=== PATIENT | male | born 2000 | race Caucasian/White ===

== ENCOUNTER 2022-01-12 17:48 | Inpatient (IN) | payer OTHER, SELFPAY ==
[2022-01-12] VITALS (10 sets, daily range): BP systolic 111–187; BP diastolic 47–81; PULSE 106–146; RESP 16–24; TEMP 36.7–37.7; O2SAT 95–100; BMI 29.1
--- NOTE | ~2022-01-12 | CT_ITS ---
EXAMINATION: CT brain wo con DATE: 01/12/2022 19:10 INDICATION: New onset of seizure. Head injury. TECHNIQUE: Computed tomography (CT) of the head was performed without intravenous contrast. The mA wa s adjusted according to patient size. Iterative reconstruction technique was employed. Exam dose: 60 5.33 mGy-cm total exam DLP. COMPARISON: None FINDINGS: No intracranial mass lesion or hemorrhage or cerebrovascular accident. No midline shift or mass effect. Normal ventricular size. Normal chow-white matter differentiation. No subdural or epidur al hematoma. The orbital contents are unremarkable. No fracture or bone destruction of the cranial vault. Included paranasal sinuses and mastoid air cell s are normally developed and aerated. IMPRESSION: Normal examination Reviewed, dictated and finalized at [facility]. Reviewed, dictated and finalized at location A. IMPRESSION: Normal examination
--- NOTE | ~2022-01-12 | CT_ITS ---
EXAMINATION: CT cervical spine wo con DATE: 01/12/2022 19:10 INDICATION: Head injury. Stat seizure. TECHNIQUE: Computed tomography (CT) of the cervical spine was performed without intravenous contrast. Automated exposure control and iterative reconstruction technique were employed. Exam dose: 458.53 mGy-cm total exam DLP. COMPARISON: None FINDINGS: Normal alignment of the cervical spine. C1 and C2 are normally aligned and the odontoid pro cess is intact. No fracture or dislocation or locked facet or prevertebral soft tissue swelling. Cerv ical interspaces are preserved.. IMPRESSION: Normal examination Reviewed, dictated and finalized at [facility]. Reviewed, dictated and finalized at location A. IMPRESSION: Normal examination
--- NOTE | ~2022-01-12 | XR_ITS ---
XR chest 1V DATE: 01/12/2022 20:24 INDICATION: Fever TECHNIQUE: Portable supine AP view on 01/12/2022 at 2017 hours COMPARISON: 07/09/2007 2 view chest FINDINGS: Heart size and pulmonary vascularity appear prominent. Heart size is not optimally evaluate d on AP projection because of medication. PA and lateral views are recommended. There are bilateral perihilar and lower lung zone infiltrates, most prominent in the left lower lobe. Differential diagnosis includes pneumonia, atelectasis, pulmonary edema. No pleural effusion or pneumothorax is detected. IMPRESSION: Limited portable study raising concern for possible cardiomegaly and pulmonary vascular c ongestion; however, heart size is not optimally evaluated AP projection Bilateral perihilar and lower lung infiltrates, most prominent in the left lower lobe; diffusion diag nosis includes pneumonia, atelectasis and/or pulmonary edema Reviewed, dictated and finalized at location A. IMPRESSION: Limited portable study raising concern for possible cardiomegaly an d pulmonary vascular congestion; however, heart size is not optimally evaluated AP projection Bilateral perihilar and lower lung infiltrates, most prominent in the left lowe r lobe; diffusion diagnosis includes pneumonia, atelectasis and/or pulmonary ed liane
--- NOTE | ~2022-01-12 | MR_ITS ---
EXAMINATION: MR brain/brain stem wo/w con DATE: 01/13/2022 12:09 CDT INDICATION: New onset of seizure. TECHNIQUE: Magnetic resonance imaging (MRI) of the brain and brainstem was performed without and with 17 cc MultiHance intravenous contrast. Sequences included sagittal and axial T1-weighted SE, axial d iffusion-weighted FS SE, axial T2*-weighted GRE, axial T2-weighted FLAIR Propeller, and axial T2-weig hted Propeller. Apparent diffusion coefficient (ADC) maps were created. COMPARISON: CT dated 01/12/2022 FINDINGS: Study limited by motion artifact. The brain volume and ventricular system are within normal limits. The brain parenchymal signal intensity pattern and chow/white matter is normal and there is no evidence of hemorrhage, space occupying masses or infarctions. The flow signal voids of the major arterial structures about the [place] and within the anthony r dural venous sinuses appear grossly unremarkable and patent. The seventh and eighth cranial nerve complexes are normal. The mid sagittal image demonstrates a normal craniovertebral junction and joanna us callosum. The paranasal sinuses are grossly unremarkable. No abnormal contrast enhancement was appreciated. IMPRESSION: 1: Unremarkable MRI of the brain. Reviewed, dictated and finalized at location A.
--- NOTE | 2022-01-12 17:52 | ECG_ITS ---
Measurements Intervals [place] Rate: 135 P: 51 SD: 152 QRS: 25 QRSD: 84 T: 15 QT: 259 QTc: 389 Interpretive Statements SINUS TACHYCARDIA OTHERWISE NORMAL ECG NO PREVIOUS ECG AVAILABLE FOR COMPARISON Electronically Signed On 01-13-2022 13:43:25 CDT by Rod Lucero M.D.
--- NOTE | 2022-01-12 17:56 | ED.SEIZURE ---
HPI - Seizure General Chief Complaint: Seizure <Rod Linder PIGMENT GRINDER - Last Filed: 01/13/22 18:13> Stated Complaint: New Onset Seizure <Rod Linder APRN - Last Filed: 01/13/22 18:13> History of Present Illness HPI Narrative: 21-year-old male presents to the emergency room via EMS for evaluation of new onset of seizure. According to EMS, patient was picked up at his place of business. 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 EMS states the patient was postictal for approximately 10 minutes onto your presentation to the ER, patient is alert and oriented x4. Patient states he has a history of asthma, takes Adderall for ADHD, and is taking testosterone and 2 supplemental steroids that he purchases from online. Patient denies any other drug use, no recent infections, no recent head injury or trauma. Patient states that he has not had any changes to his workout routine, or to the dosing of his hormone/steroid replacement therapy. Patient denies chest pain, shortness of breath. Patient denies <Rod Linder PIGMENT GRINDER - Last Filed: 01/13/22 18:13> Related Data Home Medications: Home Medications Medication Instructions Recorded Confirmed bupropion HCl 300 mg 24 hr tablet, 1 tablet PO DAILY 01/12/22 01/12/22 extended release dextroamphetamine-amphetamine 10 1 tablet PO DAILY 01/12/22 01/12/22 mg tablet dextroamphetamine-amphetamine ER 1 cap PO DAILY 01/12/22 01/12/22 20 mg 24hr capsule,extend release quetiapine 25 mg tablet 25 tablet PO DAILY 01/13/22 01/13/22 sertraline 50 mg tablet 50 tablet PO DAILY 01/13/22 01/13/22 <Rod Linder, PIGMENT GRINDER - Last Filed: 01/13/22 18:13> Allergies/Adverse Reactions: Allergies Allergy/AdvReac Type Severity Reaction Status Date / Time No Known Allergies Allergy Verified 01/12/22 22:30 <Rod Linder APRN - Last Filed: 01/13/22 18:13> Review of Systems Review of Systems: CONSTITUTIONAL: Denies fever, chills, or sweats. EYES: Denies visual changes, redness, or discharge. ENT: Denies rhinorrhea, congestion, sore throat, or otalgia. CARDIOVASCULAR: Denies chest pain, palpitations, or edema. RESPIRATORY: Denies cough or dyspnea. GASTROINTESTINAL: Denies abdominal pain, nausea, vomiting, or diarrhea. GENITOURINARY: Denies dysuria or hematuria. SKIN: Denies rash or itching. MUSCULOSKELETAL: Denies back pain, joint pain, or myalgia. NEUROLOGIC: Denies headache, numbness, dizziness, or weakness. PSYCHIATRIC: Denies anxiety or depression. <Rod Linder APRN - Last Filed: 01/13/22 18:13> PMFSH Past Medical History Medical History: Medical History (Updated 01/13/22 @ 18:13 by Rod Linder APRN) ADHD (attention deficit hyperactivity disorder) Depression Mild intermittent asthma without complication <Rod Linder APRN - Last Filed: 01/13/22 18:13> Surgical History Surgical History: Surgical History (Updated 01/12/22 @ 22:40 by Jessica Stephen DO) No pertinent past surgical history <Rod Linder APRN - Last Filed: 01/13/22 18:13> Family History Family History: Family History Mother Depression Other No history of seizure disorder <Rod Linder APRN - Last Filed: 01/13/22 18:13> Social History Social History: Social History (Updated 01/12/22 @ 22:55 by Jessica Stephen DO) Social History: The patient is currently going to the local [employer] college he started this summer semester. Prior to that he had joined [employer] and went to [employer] but was released mcc through [employer] when he developed bunch splints that were intractable. 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 He uses anabolic steroids since 2019. He also buys medications from [place] that he thinks are steroids. Smoking status: Never smoker Alcohol intake:
[2022-01-12 18:06] LABS: Basophils Percent Auto 0.5 % (0.2-1.2); Eosinophils Absolute Auto 0.1 K/mm3 (0-0.3); Eosinophils Percent Auto 1.5 % (0-4.4); Hematocrit 41.2 % (42.0-52.0); Hemoglobin 13.2 g/dL (14.0-18.0); Immature Granulocyte Percent A 1.1 % (0-0.5); Lymphocytes Percent Auto 11.3 % (18.3-44.2); Mean Corpuscular Hemoglobin 27.6 pg (26-34); Mean Corpuscular Volume 86.2 fl (80-100); Mean Platelet Volume 9.2 fl (7.4-10.4); Monocytes Absolute Auto 0.8 K/mm3 (0.1-0.6); Neutrophils Absolute Auto 6.8 K/mm3 (1.3-6.7); Neutrophils Percent Auto 76.6 % (45.5-73.1); Platelet Count Result 287 k/mm3 (150-375); Red Blood Count 4.78 M/mm3 (4.6-6.20); Red Cell Distribution Width 15.9 % (11.5-14.5); White Blood Count 8.9 K/mm3 (4.5-10.0)
[2022-01-12] MEDS: SODIUM CHLORIDE 0.9% IV 1,000 ML 999 ML IV CONT ×2 (18:15→20:44)
[2022-01-12 18:17] LABS: Alanine Aminotransferase 60 U/L (6-50); Albumin Level 4.4 g/dL (3.5-5.1); Alkaline Phosphatase 81 U/L (38-126); Anion Gap 13 mmol/L (8-16); Aspartate Amino Transferase 95 U/L (17-59); Bilirubin,Total 0.4 mg/dL (0.2-1.3); Blood Urea Nitrogen 13 mg/dL (9-20); Calcium 9.3 mg/dL (8.4-10.2); Carbon Dioxide 23 mmol/L (22-30); Chloride 103 mmol/L (98-107); Estimated CRCL calculation 88 ml/min; Estimated Glomerular Filt Rate > 60; Glucose 89 mg/dL (65-110); Potassium 4.6 mmol/L (3.4-5.0); Sodium 139 mmol/L (137-145)
[2022-01-12 18:19] LABS: Acetaminophen < 10 ug/mL (10-30); Ethanol < 10 mg/dL (<10)
[2022-01-12 18:29] LABS: Troponin I < 0.012 ng/mL (0.000-0.034)
[2022-01-12 18:46] LABS: Glucose Point of Care 87 mg/dl (65-105)
[2022-01-12 18:47] LABS: Magnesium 2.2 mg/dL (1.6-2.3)
--- NOTE | 2022-01-12 19:19 | PC.NURSE ---
1914 pt. mother yelled for help from room. pt. found to be having a SZ ERP Pernell and Dr. Velarde at pt. bedside. 1917 2 mg ativan administered IVP VORB ERP
--- NOTE | 2022-01-12 19:19 | PC.NURSE ---
Pt's visitor ran out of room, yelling for help. This RN entered room with ED MD Velarde and pt appeared to be seizing. Seizure pads in place. HOB lowered and pt on his left side. Verbal order obtained for ativan 2mg ivp given by SHONA Robles. Supplemental O2 given via blow-by. Oral secretions cleared with suction at bedside. Order for IVP Keppra received. Pt's primary RN notified.
[2022-01-12] MEDS: ONDANSETRON INJ 4 MG/2 ML VIAL IV PUSH (19:28)
[2022-01-12] MEDS: levETIRAcetam 1000MG/NACL100ML 1,000 MG/100 ML BAG 400 MG IVPB (19:28)
[2022-01-12] MEDS: LORazepam INJ (*CRX) 2 MG/ML VIAL 1 MG IV PUSH (19:28)
[2022-01-12 19:43] LABS: Appearance Urine Clear (Clear); Bilirubin Urine Negative (Negative); Blood Urine Negative (Negative); Color Urine Yellow (Yellow); Glucose Urine UA Negative (Negative); Ketones Urine Negative (Negative); Leukocyte Esterase Ur Negative LEU/UL (Negative); Nitrate Urine Negative (Negative); Protein Urine 2+ mg/dL (Negative); Specific Grav Ur >= 1.030 (1.001-1.035)
[2022-01-12 19:48] LABS: Hyaline Casts Urine 15-19 /lpf; Mucus Urine Rare /lpf; RBC Urine 0-2 /hpf (0-2); Squamous Epithelial Cell Urine Rare /hpf (Few)
[2022-01-12 19:50] LABS: Add Urine Microscopic? YES
[2022-01-12 20:00] LABS: Barbiturate Screen Urine Negative (Negative); Benzodiazepines Screen Urine Negative (Negative)
[2022-01-12 20:13] LABS: Amphetamine Screen Urine Positive (Negative); Cannabinoid Screen Urine Positive (Negative); Cocaine Screen Urine Negative (Negative); Methadone Screen Urine Negative (Negative); Opiate Screen Urine Negative (Negative); Phencyclidine Screen Urine Negative (Negative)
[2022-01-12 20:33] LABS: Creatine Kinase 912 U/L (55-170)
[2022-01-12 20:53] LABS: Lactic Acid Reflex 1.5 mmol/L (0.7-2.0)
--- NOTE | 2022-01-12 21:20 | PC.NURSE ---
This nurse received telephone consent from pt father with MD Velarde due to difficulty to have patient repeat back sentences and difficulty staying awake.
--- NOTE | 2022-01-12 21:27 | PM.IMHP ---
H&P: HPI History of Present Illness Date/Time: 01/12/22 20:00 Chief Complaint: Seizure Narrative: 21-year-old male with past medical history of asthma, depression, ADHD and antibiotic steroid abuse who presented to the ER from his place of employment after having witnessed seizure. Source of information comes from the patient's wtolhr-rx-tfo/employer who is at bedside. Patient's family member reports that the patient's had his 1st seizure on Saturday while at work and washing dishes. The seizure lasted about 20 seconds and within 1-2 minutes afterwards he was back to his baseline. She reports that he was shook up but was back to normal. Then today he was again at work and seemed to be shaking and restless. He then had a seizure tonic clonic in nature and fell to the ground. Seizure today lasted longer than the previous seizure but probably not longer than 1 minute. He did not have any loss of consciousness. The patient remained postictal for approximately 10 minutes. The patient was alert oriented by the time he got to the ER. However while he was in the ER he then had another seizure witnessed in the ER. Unfortunately the patient had just drink a large glass of water prior to the seizure and it is suspected that he aspirated. He received IV Keppra 1 g and Ativan in the ER. At the time of my evaluation the patient was still postictal he would open his eyes to command but fell asleep quickly and was snoring. He could tell me his name but could not provide any other history. Patient had no evidence of bladder incontinence. He had no injury to his tongue. His family member reports that she has noticed over the last month the patient has developed some twitching and irregular movements including rhythmic movements of his head. She also reports a new onset of stutter and difficulty with slurring of words. The patient does take Adderall for ADHD and uses marijuana. He has also been abusing antibiotic steroids since 2019. He has also been buying a substance from [place] that he believes his steroids in using this as well. The family reports that the patient only drinks soda and lemonade. She rarely sees him actually eat food. She reports that he used to be quite skinny and [place] but when he started using steroids he became muscular almost overnight. She denies any known history of illicit substance use. He rarely drinks alcohol. He does not smoke tobacco. The patient had not been complaining of any headache that they know of. The patient did have a mildly elevated temperature on arrival to the ER and 99.8. On exam in the ER the patient was hyper reflex sick with 4/4 DTR bilateral patellar, he had increased tone of right upper extremity, had clonus of the right foot, and his right foot seemed to have a Babinski. Review of Systems Review of Systems: Patient is postictal from seizure. ROS unobtainable: Yes unobtainable due to mental status PMFSH Past Medical History Medical History (Updated 01/12/22 @ 23:10 by Jessica Stephen DO) ADHD (attention deficit hyperactivity disorder) Depression Mild intermittent asthma without complication Surgical History Surgical History (Updated 01/12/22 @ 22:40 by Jessica Stephen DO) No pertinent past surgical history Family History Family History Mother Depression Other No history of seizure disorder Social History Social History (Updated 01/12/22 @ 22:55 by Jessica Stephen DO) Social History: The patient is currently going to the local [employer] college he started this summer semester. Prior to that he had joined [employer] and went to [employer] but was released senior care through [employer] when he developed bunch splints that were intractable. 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 He uses anabolic steroids since 2019. He also buys medications from [employer] that he thinks are steroids. Smoking
[2022-01-12] MEDS: SODIUM CHLORIDE 0.9% IV 1,000 ML 125 ML IV CONT (21:43)
[2022-01-12] MEDS: AMPICILLIN SULB 3 GM/NS 100 ML 3 GM/100 ML VIAL IVPB (22:23)
--- NOTE | 2022-01-12 23:04 | ADMGEN ---
This patient, Rex De La Cruz, was admitted to 2 Medical Room 242-01 @ 2230 Patient/family oriented to hospital policies and general routines including ID bracelet, bed and alarms, visiting hours, pain management, procedures, bathroom and other care routines, personal items, smoking policy, room service/diet, and visiting hours. Information on how to activate the Rapid Response Team has been discussed. Patient/Family are encouraged to report perceived risks to care and to ask questions if they do not understand what they are told or what they should do.
[2022-01-12 23:30] LABS: CRP 0.8 mg/dL (<1.0)
[2022-01-12] MEDS: cefTRIAXone 2 GM in SODIUM CHLORIDE 0.9% IV 100 ML 200 ML IVPB (23:32)
[2022-01-12] MEDS: ACYCLOVIR SODIUM IVPB 800 MG in DEXTROSE 5% IN WATER 250 ML 266 MG IVPB (23:32)
[2022-01-12] MEDS: metroNIDAZOLE 500 MG/ISO 100ML 500 MG/100 ML BAG 100 MG IVPB (23:57)
[2022-01-13] VITALS (9 sets, daily range): BP systolic 127–131; BP diastolic 53–56; PULSE 101–115; RESP 17–18; TEMP 36.6–36.9; O2SAT 94–98
[2022-01-13 00:09] LABS: HIV 1/2 Ab P24 Ag Result Negative (Negative)
[2022-01-13 00:43] LABS: Influenza A QL RT-PCR Negative (Negative); Influenza B QL RT-PCR Negative (Negative); SARS-CoV-2 RNA PCR Negative
[2022-01-13 00:43] LABS: Hepatitis B Surface Antigen Negative (Negative)
[2022-01-13 00:49] LABS: HAV RESULT Negative (Negative); Hepatitis B Core IgM Result Negative (Negative)
[2022-01-13 01:00] LABS: Hepatitis C Virus Antibody Negative (Negative)
[2022-01-13] MEDS: metroNIDAZOLE 500 MG/ISO 100ML 500 MG/100 ML BAG 100 MG IVPB ×4 (05:30→23:20)
[2022-01-13] MEDS: ACYCLOVIR SODIUM IVPB 800 MG in DEXTROSE 5% IN WATER 250 ML 266 MG IVPB ×3 (05:37→21:11)
[2022-01-13] MEDS: levETIRAcetam 500MG/NACL 100ML 500 MG/100 ML BAG 400 MG IVPB ×2 (08:28→21:11)
[2022-01-13] MEDS: SODIUM CHLORIDE 0.9% IV 1,000 ML 125 ML IV CONT ×2 (08:34→22:12)
[2022-01-13] MEDS: PANTOPRAZOLE SODIUM IV 40 MG VIAL IV PUSH (10:41)
[2022-01-13] MEDS: cefTRIAXone 2 GM in SODIUM CHLORIDE 0.9% IV 100 ML 200 ML IVPB ×2 (10:49→22:10)
[2022-01-13] MEDS: ONDANSETRON INJ 4 MG/2 ML VIAL IV PUSH (10:53)
--- NOTE | 2022-01-13 10:58 | PM.IMPN ---
Progress Note: A&P Assessment and Plan (1) New onset seizure with abnormal neurological exam without head trauma: Code(s): R56.9 - Unspecified convulsions; R29.90 - Unspecified symptoms and signs involving the nervous system Status: Acute (2) Sepsis: Code(s): A41.9 - Sepsis, unspecified organism Status: Acute (3) Aspiration pneumonia: Code(s): J69.0 - Pneumonitis due to inhalation of food and vomit Status: Acute (4) Anabolic steroid abuse: Code(s): F55.3 - Abuse of steroids or hormones Status: Acute Plan Patient has new onset seizure. Cause is uncertain but given family's report of patient having neurologic changes for month prior with increased shaking and twitching and abnormal movements and speech difficulties certainly need to rule out progressive neurologic disorders. However meningitis or encephalitis is also possibility. Unfortunately the ER provider was unable to perform lumbar puncture due to the patient's clonus and rigidity. Patient has been placed on empiric antibiotic and antiviral coverage with acyclovir 10 milligram/kilogram q.8 hours, Rocephin 2 g q.12 hours, vancomycin, and Decadron. Neurology has been consulted and EEG and MRI has been ordered. I have placed an order for IR consult for potential repeat attempt of lumbar puncture in a.m.. CSF studies have been ordered including HS at be PCR, EBV PCR, West Nile PCR, enterovirus PCR, and CMV, CSF glucose, total protein, cell count and Gram stain. Also will check his varicella serum antibodies, with now serum antibodies. The patient fit sepsis criteria with tachycardia, fever, and tachypnea. He received a 30 mL/kilos bolus in the ER and maintenance fluids are continuing to run. Blood cultures have been obtained. CSF studies as discussed above. Chest x-ray was performed after the patient's seizure and subsequent aspiration and chest x-ray suggests findings consistent with pneumonia with perihilar and lower lung infiltrates most prominent left lower lobe. Initially patient did receive 1 dose of Unasyn but given need to streamline antibiotic choices Unasyn was discontinued. The patient was placed on Flagyl for anaerobic coverage and is already receiving high-dose Rocephin due to meningitis order set. Given the use of antibiotics steroids and repeat injections. Patient is at risk for bacteremia. Blood cultures are pending. 05/15/2022 interval history: patient presented with seizures like activities and jerking movement, etiology is unclear of symptoms, apparently patient is buying psychiatric and steroids online and some of the medications are prescribed his primary care provider, Ct scan of head and cervical spine are normal, LP was attempted but was not done, MRI and EEG are pending, patient will be seen by Dr. Granados, neurologist, chest x-ray concerning of cardiomegaly, will do cardiac echo, patient has elevated CK level most likely 2/2 to seizures like activities, will monitor, will hold all his medications, will monitor and plan. Subjective Date/time seen: 01/13/22 10:58 Seizure Narrative: [id number] male with past medical history of asthma, depression, ADHD and antibiotic steroid abuse who presented to the ER from his place of employment after having witnessed seizure.? Source of information comes from the patient's lfwewm-mi-idg/employer who is at bedside.? 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 The seizure lasted about 20 seconds and within 1-2 minutes afterwards he was back to his baseline.? She reports that he was shook up but was back to normal.? Then today he was again at work and seemed to be shaking and restless.? He then had a seizure tonic clonic in nature and fell to the ground.? Seizure today lasted longer than the previous seizure but probably not longer than 1 minute.? He did not have any loss of consciousness.? The patient remained p
--- NOTE | 2022-01-13 12:18 | PC.NURSE ---
Spoke to Radiologist Dr. Bowen regarding spinal tap. I was informed noone will be available until Saturday to do the procedure.
[2022-01-13] MEDS: LORazepam INJ (*CRX) 2 MG/ML VIAL IV PUSH (12:40)
[2022-01-13] MEDS: CALCIUM CARBONATE (TUMS) 500 MG (200 MG ELEMENTAL) PO (23:19)
[2022-01-14] VITALS: PULSE 101
--- NOTE | 2022-01-14 03:21 | PC.NURSE ---
Pt is demanding to leave hospital now. He states, I want to go home this happened because I have not been sleeping and I have been working long hours. He then states, I really think this happened because of no sleep due to his carpel tunnel and working so much. I explained to him plan of care and he said, If it happens again, I will come back He is alert and oriented and answering questions appropriately. He is dressing himself right now and calling [employer] for a ride. He is ambulating in the room with no difficulty. I spent some time at bedside explaining to patient doctors plan of care. He has made the decision he is leaving now. Notified Dr. Stephen and nursing supervisor hardboard, Lilibeth Horan RN Nursing Breana VOGEL is taking him to the front doors per w/c.
--- NOTE | 2022-01-15 05:56 | PM.EVENT ---
Event Note Event Note Event Note: 01/14/2022 at 3:20 a.m. The patient is leaving AMA despite discussion of risks of doing so. The patient is aware his condition can worsen, he could have recurrent seizures or .
[2022-01-15 23:41] LABS: CMV DNA Quant PCR IU/mL Not Detected; Cytomegalovirus DNA Quant PCR Not Detected log IU/mL; Cytomegalovirus DNA Source Serum
[2022-01-18 17:16] LABS: Varicella IgM Antibody <=0.90 (<=0.90)
--- NOTE | 2022-01-26 11:55 | WPDNEURCNPN ---
Assessment and Plan Assessment and plan (1) Seizure disorder: Code(s): G40.909 - Epilepsy, unspecified, not intractable, without status epilepticus Status: Acute Assessment and Plan: continue the Keppra as ordered, no driving, return to the office for the follow Consult date: 01/26/22 HPI: Rex De La Cruz is a 21 year old male Was initially seen during his previous hospitalization on January 14, 2022 for the possibility of the seizures when his initial examination was nonfocal and an EEG was requested but unfortunately sign-out before the evaluation completed. An EEG was obtained which was only minimally abnormal due to the presence of excessive amount of theta activity during wakefulness but there was no evidence of any paroxysmal discharge Review of Systems Review of Systems: All systems reviewed & are unremarkable except as noted in HPI and below PMFSH Past Medical History Medical History Acute pancreatitis ADHD (attention deficit hyperactivity disorder) Depression Mild intermittent asthma without complication Seizure disorder Surgical History Surgical History No pertinent past surgical history Family History Family History Mother Depression Other No history of seizure disorder Social History Social History Social History: The patient is currently going to the local [employer] college he started this summer semester. Prior to that he had joined [employer] and went to [employer] but was released usp through [employer] when he developed bunch splints that were intractable. 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 He uses anabolic steroids since 2019. He also buys medications from [employer] that he thinks are steroids. Smoking status: Never smoker Alcohol intake: never Substance use: current Substance use type: marijuana and amphetamines Other substance usage details: Testerone, Steroids, Trestolone Spiritual care concerns: No Meds Home Medications and Allergies Home Medications Medication Instructions Recorded Confirmed Type dextroamphetamine-amphetamine 10 1 tablet PO DAILY 01/12/22 01/24/22 History mg tablet dextroamphetamine-amphetamine ER 1 cap PO DAILY 01/12/22 01/24/22 History 20 mg 24hr capsule,extend release sertraline 50 mg tablet 50 tablet PO DAILY 01/13/22 01/24/22 History methylprednisolone 4 mg tablets in See Rx Instructions PO .COMPLEX 01/24/22 Rx a dose pack (Medrol ([place])) #21 ea Allergies Allergy/AdvReac Type Severity Reaction Status Date / Time No Known Allergies Allergy Verified 01/24/22 19:59 Exam Narrative: revealed him to be awake alert cooperative, in no obvious acute distress, his speech was not dysphasic not dysarthric nor dysphonic, pupils were round regular reacting to light equally, arriaga of vision were full to stimuli, extraocular movements were full with no nystagmus, facial sensation was intact, face was symmetrical, tongue was in midline, uvula was midline in, there was no fasciculation of the tongue and the motor examination revealed him to have normal strength normal tone symmetrical bilaterally with intact and symmetrical deep tendon reflexes plantar responses were downgoing there was no evidence of sensory or cerebellar deficit Results Labs CBC & Chem 7: 01/12/22 18:01 01/12/22 18:01 Quality VTE Prophylaxis VTE prophylaxis: mechanical ordered (SCD) [facility] Consult Billing Inpatient Consult [id number] Consult Moderate
== END 2022-01-14 03:40 | disposition left against medical advice (07) | DRG 871 ==
LOC: ANHED 18:55 → ANH2MED 01-13 02:34
PROVIDERS: Admitting Provider Internal Medicine; Emergency Provider Nurse Practitioner Family; Visit Provider Internal Medicine
DX: A41.9 Sepsis, unspecified organism (principal); J18.9 Pneumonia, unspecified organism; J69.0 Pneumonitis due to inhalation of food and vomit; Z20.822 Contact with and (suspected) exposure to COVID-19; R56.9 Unspecified convulsions; R29.90 Unspecified symptoms and signs involving the nervous system; F55.3 Abuse of steroids or hormones; F90.9 Attention-deficit hyperactivity disorder, unspecified type; F32.A Depression, unspecified; J45.909 Unspecified asthma, uncomplicated; Z53.8 Procedure and treatment not carried out for other reasons
CPT/HCPCS: 36415; 62270; 62328; 70450; 70553; 71045; 72125; 80053; 80074; 80307; 81001; 82550; 82948; 83605; 83735; 84145; 84443; 84484; 85025; 86140; 86703; 86787; 86788; 87040; 87497; 87502; 93005; 96361; 96365; 96375; 99285; A9270; A9577; C9113; C9803; G0378; G0432; J0133; J0295; J0696; J1100; J1953; J2060; J2405; J3370; J7030; J7060; U0003; U0005

== ENCOUNTER 2022-01-14 12:28 | Observation (INO) | payer OTHER, SELFPAY ==
[2022-01-14] VITALS (13 sets, daily range): BP systolic 121–148; BP diastolic 56–75; PULSE 94–110; RESP 13–24; TEMP 36.3–37; O2SAT 94–100; BMI 26.2
--- NOTE | ~2022-01-14 | XR_ITS ---
EXAMINATION: XR lumbar puncture diagnostic DATE: 01/15/2022 10:21 INDICATION: Seizure TECHNIQUE: The procedure including the risks and benefits was discussed with the patient. Risks discu ssed included spinal headache, cerebrospinal fluid leak, bleeding, and infection. The patient underst ood the risks and agreed to proceed. A timeout was performed to verify the patient's name, date of , and procedure to be performed. The skin overlying the L4-L5 level was prepped and draped in usual sterile fashion. Subcutaneous 1% lidocaine was used for local anesthesia. A 22 gauge spinal n eedle was advanced under fluoroscopic guidance. The needle was removed and the entry site was cleaned and dressed. There were no immediate complications. A total of 1 fluoroscopic image(s) were obtaine d. The amount of fluoroscopy time used during this procedure was 0.1 minutes. The patient was taken t o the nursing area for observation. FINDINGS: Real-time fluoroscopy demonstrates the needle at the L4-5 level. Opening pressure was 18 cm water. (Normal range is variably defined as 6-20 cm water and up to 25 cm water in obese patients. P ressure >25 cm water is one of the modified Dandy criteria for idiopathic intracranial hypertension). 12 mL of clear, colorless fluid was collected in 4 tubes. IMPRESSION: 1. Successful fluoro-guided lumbar puncture. Reviewed, dictated and finalized at location A.
--- NOTE | ~2022-01-14 | CT_ITS ---
EXAMINATION: CT abdomen pelvis wo con DATE: 01/14/2022 14:35 INDICATION: abd pain TECHNIQUE: Computed tomography (CT) of the abdomen and pelvis was performed without intravenous contr ast. Automated exposure control and iterative reconstruction technique were employed. The dose-length product was 368.14 mGy-cm. COMPARISON: None FINDINGS: Lower thorax: Unremarkable Liver: Normal. Biliary/Gallbladder: Gallbladder is normal. No bile duct dilation. Pancreas: Pancreas appears enlarged, possibly with surrounding inflammatory change Spleen: Normal. Adrenals:No mass. Kidneys: No mass, stone, or hydronephrosis. GI tract: No small or large bowel dilation. Normal appendix. Mesentery/Peritoneum: Small volume fluid in Morison's pouch extending along the right lateral conal f ascia. Retroperitoneum: No mass. Pelvis: Pelvic organs are within normal limits. Soft Tissues: Soft tissues and body wall unremarkable. Bones: No acute osseous finding. IMPRESSION: Mild pancreatic enlargement with possible mild surrounding inflammation and small volume peritoneal f luid, may reflect pancreatitis in the appropriate clinical context. Otherwise no acute abdominopelvic process. Reviewed, dictated and finalized at location K. IMPRESSION: Mild pancreatic enlargement with possible mild surrounding inflammation and sma ll volume peritoneal fluid, may reflect pancreatitis in the appropriate clinica l context. Otherwise no acute abdominopelvic process.
--- NOTE | ~2022-01-14 | XR_ITS ---
EXAMINATION: XR chest 1V portable Exam Date/Time: 01/14/2022 13:30 CDT HISTORY: cough CONGESTION SEIZURE Comparison: 01/12/2022. RESULT: Lines, tubes, and devices: None. Lungs and pleura: Clear. Cardiomediastinal silhouette: Stable cardiomediastinal silhouette. Small hiatal hernia. Other: No acute osseous or upper abdominal finding. IMPRESSION: No acute cardiopulmonary process. Reviewed, dictated and finalized at location K.
--- NOTE | 2022-01-14 12:48 | PC.NURSE ---
Patient reports he left this morning AMA from the hospital via [employer] but did not remember anything other than calling going home via [employer]. Patient reports he is back because he was very confused this morning and didn't know where he was or who he was. Patient brought back in by a friend. Patient is A&Ox4 at this time.
--- NOTE | 2022-01-14 13:14 | ED.AMS ---
HPI - Altered Mental Status General Chief Complaint: Altered Mental Status <RM Bernabe Last Filed: 01/14/22 17:35> Stated Complaint: Disorientation Today <RM Bernabe Last Filed: 01/14/22 17:35> Time Seen by Provider: 01/14/22 13:02 <RM Bernabe Last Filed: 01/14/22 17:35> History of Present Illness HPI narrative: Patient is a 21-year-old male here for evaluation of new onset seizures. Patient into the emergency department 2 days ago for the same, was admitted, but left against medical advice this morning. Patient states that he was out of it and does not remember eloping from the hospital this morning. He woke up at home, spoke with his brother, and presented back to the emergency department requesting readmission for further evaluation. Denies headache, fever, chills. He is not aware if he had another seizure. Per chart review, patient was placed on empiric antibiotic and antiviral coverage with acyclovir, Rocephin, vancomycin, and Decadron.? Neurology was consulted and EEG and MRI has been ordered, MRI was normal but EEG was not completed due to patient elopement.?Lumbar puncture was attempted in the ED but was unsuccessful due to clonus. IR was consulted today for repeat study but again patient eloped prior to this procedure. <RM Bernabe Last Filed: 01/14/22 17:35> Related Data Home Medications: Home Medications Medication Instructions Recorded Confirmed bupropion HCl 300 mg 24 hr tablet, 1 tablet PO DAILY 01/12/22 01/12/22 extended release dextroamphetamine-amphetamine 10 1 tablet PO DAILY 01/12/22 01/12/22 mg tablet dextroamphetamine-amphetamine ER 1 cap PO DAILY 01/12/22 01/12/22 20 mg 24hr capsule,extend release quetiapine 25 mg tablet 25 tablet PO DAILY 01/13/22 01/13/22 sertraline 50 mg tablet 50 tablet PO DAILY 01/13/22 01/13/22 <RM Bernabe Last Filed: 01/14/22 17:35> Allergies/Adverse Reactions: Allergies Allergy/AdvReac Type Severity Reaction Status Date / Time No Known Allergies Allergy Verified 01/12/22 22:30 <Padmini Hanks PA-C - Last Filed: 01/14/22 17:35> Review of Systems Review of Systems: Gen: Denies fevers or chills Eyes: Denies eye pain or visual change ENT: Denies congestion Respiratory: Denies shortness of breath or cough CV: Denies chest pain or palpitations GI: Denies abdominal pain nausea, emesis or diarrhea denies burning, urgency, frequency or hematuria Musculoskeletal: Denies back pain or muscle pain Neuro: Denies headache, numbness, tingling, weakness or focal weakness Skin: Denies rash Except as documented, all other systems reviewed and negative <Padmini Hanks PA-C - Last Filed: 01/14/22 17:35> [facility] Past Medical History Medical History: Medical History ADHD (attention deficit hyperactivity disorder) Depression Mild intermittent asthma without complication <Padmini Hanks PA-C - Last Filed: 01/14/22 17:35> Surgical History Surgical History: Surgical History No pertinent past surgical history <Padmini Hanks PA-C - Last Filed: 01/14/22 17:35> Family History Family History: Family History Mother Depression Other No history of seizure disorder <Padmini Hanks PA-C - Last Filed: 01/14/22 17:35> Social History Social History: Social History (Updated 01/12/22 @ 22:55 by Jessica Stephen DO) Social History: The patient is currently going to the local [employer] college he started this summer semester. Prior to that he had joined the [employer] and went to [place] but was released m[facility]p through [employer] when he developed bunch splints that were intractable. He is working part-time as a dishw
[2022-01-14 13:44] LABS: Basophils Percent Auto 0.2 % (0.2-1.2); Hematocrit 37.8 % (42.0-52.0); Hemoglobin 12.1 g/dL (14.0-18.0); Immature Granulocyte Absolute 0.12 K/mm3 (0.00-0.031); Immature Granulocyte Percent A 0.6 % (0-0.5); Lymphocytes Percent Auto 3.7 % (18.3-44.2); Mean Corpuscular Hemoglobin 27.7 pg (26-34); Mean Corpuscular Volume 86.5 fl (80-100); Mean Platelet Volume 9.1 fl (7.4-10.4); Monocytes Absolute Auto 1.5 K/mm3 (0.1-0.6); Monocytes Percent Auto 7.6 % (2.6-8.5); Neutrophils Absolute Auto 16.7 K/mm3 (1.3-6.7); Neutrophils Percent Auto 87.9 % (45.5-73.1); Platelet Count Result 290 k/mm3 (150-375); Red Blood Count 4.37 M/mm3 (4.6-6.20); Red Cell Distribution Width 15.8 % (11.5-14.5)
[2022-01-14 13:55] LABS: INR 1.1; Prothrombin Time 13.8 Seconds (11.1-14.7)
[2022-01-14 13:56] LABS: Partial Thromboplastin Time 25.3 SECONDS (22.3-36.8)
[2022-01-14 13:57] LABS: Creatine Kinase 653 U/L (55-170)
[2022-01-14 13:58] LABS: Alanine Aminotransferase 43 U/L (6-50); Albumin Level 4.2 g/dL (3.5-5.1); Alkaline Phosphatase 56 U/L (38-126); Anion Gap 6 mmol/L (8-16); Aspartate Amino Transferase 80 U/L (17-59); Bilirubin,Total 0.3 mg/dL (0.2-1.3); Blood Urea Nitrogen 13 mg/dL (9-20); Calcium 9.1 mg/dL (8.4-10.2); Carbon Dioxide 27 mmol/L (22-30); Chloride 105 mmol/L (98-107); Estimated CRCL calculation 104 ml/min; Estimated Glomerular Filt Rate > 60; Glucose 119 mg/dL (65-110); Lactic Acid Reflex 0.7 mmol/L (0.7-2.0); Sodium 138 mmol/L (137-145)
[2022-01-14 14:10] LABS: Lipase 2764 U/L (23-300)
[2022-01-14 14:13] LABS: Troponin I < 0.012 ng/mL (0.000-0.034)
[2022-01-14] MEDS: SODIUM CHLORIDE 0.9% IV 1,000 ML 999 ML IV CONT ×2 (14:13→17:26)
[2022-01-14] MEDS: PANTOPRAZOLE SODIUM IV 40 MG VIAL IV PUSH (14:13)
[2022-01-14] MEDS: levETIRAcetam 500MG/NACL 100ML 500 MG/100 ML BAG 400 MG IVPB ×2 (14:21→20:41)
[2022-01-14 14:26] LABS: Ethanol < 10 mg/dL (<10)
[2022-01-14] MEDS: ACYCLOVIR SODIUM IVPB 800 MG in DEXTROSE 5% IN WATER 250 ML 266 MG IVPB ×2 (14:39→22:11)
[2022-01-14] MEDS: cefTRIAXone 2 GM in SODIUM CHLORIDE 0.9% IV 100 ML 200 ML IVPB ×2 (14:40→21:11)
--- NOTE | 2022-01-14 17:41 | PC.NURSE ---
Patient care report called to SHONA Mckeon. All questions answered at this time.
[2022-01-14] MEDS: MAG HYDROX/AL HYDROX/SIMETH 30 ML UDC PO ×2 (17:44→22:11)
[2022-01-14 17:46] LABS: Lipase 2812 U/L (23-300)
--- NOTE | 2022-01-14 18:12 | ADMGEN ---
This patient, Rex De La Cruz, was admitted to IMU Room 232-01. Patient/family oriented to hospital policies and general routines including ID bracelet, bed and alarms, visiting hours, pain management, procedures, bathroom and other care routines, personal items, smoking policy, room service/diet, and visiting hours. Information on how to activate the Rapid Response Team has been discussed. Patient/Family are encouraged to report perceived risks to care and to ask questions if they do not understand what they are told or what they should do.
[2022-01-14] MEDS: BENZOCAINE/MENTHOL (*BKC) 18 EA LOZENGE 1 LOZENGE PO (18:35)
--- NOTE | 2022-01-14 18:45 | PC.NURSE ---
All Charting on Patient starting at 17:56 was done by me Linda Murcia. It was charted under Valerie Rowe by mistake.
--- NOTE | 2022-01-14 19:10 | PM.IMHP ---
H&P: HPI History of Present Illness Date/Time: Patient was placed observation status for expected length of stay less than 23 hours for management, will plan to re-evaluate tomorrow for improvement. 01/14/22 19:10 Chief Complaint: Seizure Narrative: Mr. De La Cruz is a 21-year-old gentleman who presented emergency room after signing out against medical advice to have his workup finished. Patient was admitted on 01/12/2022 for possible seizure activity. Patient states he does not recall events that occurred during that time frame. Patient states that he was told he had 3 seizures at home. Patient states that his brother's danielancee witnessed the patient shaking on the ground in turning purple in color. Patient states that he was told that the episode lasted approximately 10 minutes. Patient states that he did lose control of his bowels. Patient was admitted to the hospital was started on acyclovir, vancomycin, Decadron, and Rocephin. A lumbar puncture was attempted but was unsuccessful. Patient left against medical advice on 01/13/22. At this point time patient states he does not recall leaving against medical advice. Patient was to have a lumbar puncture performed by Interventional Radiology on Saturday. Patient states he has had no further seizure activity since leaving, but did want to find out if they could find the etiology of his seizure. Patient denies any fever or chills at home. During last admission it was noted that patient was fever all prior to arrival in ER. Patient did receive Keppra on last admission and this has been continued. Neurology was consulted, but unfortunately they were unable to see the patient because he left. An EEG was also to be performed. At this point in time patient is alert oriented x4 and has no evidence of seizure activity. Patient has remained afebrile. Patient states he has been taking Adderall as well as testosterone injections that he has received from an online source. Patient also states that he takes Zoloft, Wellbutrin, and creatine. Patient denies having any sexual activity in last 6 months. Patient denies any history of STDs. Patient states prior to this 6 month of cell dizzy he did have unprotected sex. Patient denies any headaches or difficulty moving head or neck. Patient states he has a known history of attention deficit disorder, depression, and reflux disease. As already stated patient states he receives Adderall from an online sources as well as Zoloft, Wellbutrin, and Seroquel as listed on his home medication list. Patient states he does take creatinine also. Per previous medical records patient was also taking multiple herbal supplements that he was buying online from [employer]. Review of Systems Review of Systems: A 12 point review of systems was completed patient all pertinent positive and negative per HPI the remainder are unremarkable. PMFSH Past Medical History Medical History ADHD (attention deficit hyperactivity disorder) Depression Mild intermittent asthma without complication Surgical History Surgical History No pertinent past surgical history Family History Family History Mother Depression Other No history of seizure disorder Social History Social History (Updated 01/12/22 @ 22:55 by Jessica Stephen DO) Social History: The patient is currently going to the local [employer] he started this summer semester. Prior to that he had joined [employer] and went to [employer] but was released long-term through [employer] when he developed bunch splints that were intractable. 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 He uses anabolic steroids since 2019. He also buys medications from [employer] that he thinks are steroids. Smoking status: Never smoker Alcohol in
[2022-01-14] MEDS: SODIUM CHLORIDE 0.9% IV 1,000 ML 150 ML IV CONT (21:37)
[2022-01-14] MEDS: METOCLOPRAMIDE HCL 10 MG TABLET PO (23:37)
[2022-01-15] VITALS (15 sets, daily range): BP systolic 109–137; BP diastolic 50–70; PULSE 80–118; RESP 12–20; TEMP 36.6–36.8; O2SAT 96–98
[2022-01-15] MEDS: SODIUM CHLORIDE 0.9% IV 1,000 ML 150 ML IV CONT ×2 (01:46→17:26)
[2022-01-15] MEDS: LORazepam INJ (*CRX) 2 MG/ML VIAL 1 MG IV PUSH (02:31)
[2022-01-15] MEDS: BACLOFEN 10 MG TABLET PO (03:49)
[2022-01-15] MEDS: BENZOCAINE/MENTHOL (*BKC) 18 EA LOZENGE 1 LOZENGE PO ×2 (04:03→10:11)
[2022-01-15 05:17] LABS: Basophils Percent Auto 0.1 % (0.2-1.2); Hematocrit 39.5 % (42.0-52.0); Hemoglobin 12.5 g/dL (14.0-18.0); Immature Granulocyte Absolute 0.16 K/mm3 (0.00-0.031); Immature Granulocyte Percent A 0.9 % (0-0.5); Lymphocytes Absolute Auto 0.56 K/mm3 (0.9-3.2); Lymphocytes Percent Auto 3.2 % (18.3-44.2); Mean Corpuscular HGB Conc 31.6 g/dl (32-36); Mean Corpuscular Hemoglobin 27.4 pg (26-34); Mean Corpuscular Volume 86.4 fl (80-100); Mean Platelet Volume 9.6 fl (7.4-10.4); Monocytes Absolute Auto 0.8 K/mm3 (0.1-0.6); Monocytes Percent Auto 4.3 % (2.6-8.5); Neutrophils Absolute Auto 16.1 K/mm3 (1.3-6.7); Neutrophils Percent Auto 91.5 % (45.5-73.1); Platelet Count Result 282 k/mm3 (150-375); Red Blood Count 4.57 M/mm3 (4.6-6.20); Red Cell Distribution Width 15.9 % (11.5-14.5); White Blood Count 17.5 K/mm3 (4.5-10.0)
[2022-01-15 05:24] LABS: Alanine Aminotransferase 38 U/L (6-50); Albumin Level 4.1 g/dL (3.5-5.1); Alkaline Phosphatase 47 U/L (38-126); Anion Gap 7 mmol/L (8-16); Aspartate Amino Transferase 66 U/L (17-59); Bilirubin,Total 0.3 mg/dL (0.2-1.3); Blood Urea Nitrogen 12 mg/dL (9-20); Calcium 8.5 mg/dL (8.4-10.2); Carbon Dioxide 25 mmol/L (22-30); Chloride 104 mmol/L (98-107); Estimated CRCL calculation 104 ml/min; Estimated Glomerular Filt Rate > 60; Glucose 143 mg/dL (65-110); Potassium 4.4 mmol/L (3.4-5.0); Sodium 136 mmol/L (137-145)
[2022-01-15] MEDS: ACYCLOVIR SODIUM IVPB 800 MG in DEXTROSE 5% IN WATER 250 ML 266 MG IVPB ×3 (05:39→22:58)
[2022-01-15 06:53] LABS: Lipase 5748 U/L (23-300)
--- NOTE | 2022-01-15 08:47 | WPDNEURCNPN ---
Assessment and Plan Assessment and plan (1) Seizure disorder: Code(s): G40.909 - Epilepsy, unspecified, not intractable, without status epilepticus Status: Acute Plan Obtain the EEG to rule out the possibility of seizures and further recommendation accordingly otherwise his main problem is psych related Consult date: 01/15/22 Reason for consult: 21 years old has been admitted to [facility] through the emergency room with the complaints of change in the mental status and also for the new onset seizures. Patient had been in the Emergency Room 48 hours ago for the same complaints when he was admitted to the hospital but left against medical advise in the morning at the time of visit to the ER this time he reported that he was out of it and does not remember eloping from the hospital in the morning he woke up at home spoke with his brothers and presented back to the emergency department requesting readmission for further evaluation he did not complain of headache fever or chills and he was not aware whether he had another seizure or not Dominique was in the hospital last time patient was placed on antibiotic and antiviral coverage with acyclovir Rocephin vancomycin Decadron EEG and MRI had been ordered MRI was normal and the EEG was not completed due to patient elopement lumbar puncture was attempted in the emergency room but was unsuccessful due to clonus, Thatch has been taking bupropion 300 mg daily dextroamphetamine amphetamine 10 mg tablet daily and extended release 20 mg daily in addition to Seroquel 25 mg daily and sertraline 50 mg daily he is not known to be allergic to any medications. As per the information available he has ongoing history of ADHD, depression and mild intermittent bronchial asthma he is a never smoker never drinker but takes anabolic steroids his pertinent investigations include CT of the abdomen and pelvis without contrast documenting mild pancreatic enlargement with possible mild surrounding information and small volume of peritoneal fluid which could reflect pancreatitis in the appropriate clinical context, chest x-ray negative, and brain MRI normal he also had a cervical spine CT scan on January 12, 2022 which was negative. On the floor it was documented that he is taking all his medication and that he has received Adderall from unknown lines ptosis as well as other medication as outlined above HPI: Rex De La Cruz is a 21 year old male Review of Systems Review of Systems: All systems reviewed & are unremarkable except as noted in HPI and below PMFSH Past Medical History Medical History ADHD (attention deficit hyperactivity disorder) Depression Mild intermittent asthma without complication Surgical History Surgical History No pertinent past surgical history Family History Family History Mother Depression Other No history of seizure disorder Social History Social History (Updated 01/12/22 @ 22:55 by Jessica Stephen DO) Social History: The patient is currently going to the local [employer] college he started this summer semester. Prior to that he had joined [employer] and went to [employer] but was released alf through [employer] when he developed bunch splints that were intractable. 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 He uses anabolic steroids since 2019. He also buys medications from [employer] that he thinks are steroids. Smoking status: Never smoker Alcohol intake: never Substance use: current Substance use type: marijuana and amphetamines Other substance usage details: Testerone, Steroids, Trestolone Spiritual care concerns: No Meds Home Medications and Allergies Home Medications Medication Instructions Recorded Confirmed Type bupropion HCl 300
--- NOTE | 2022-01-15 09:29 | PM.IMPN ---
Progress Note: A&P Assessment and Plan (1) Seizure disorder: Code(s): G40.909 - Epilepsy, unspecified, not intractable, without status epilepticus Status: Acute Assessment and Plan: Patient is to have EEG tomorrow. Neurology has been consult and appreciate further recommendations. Patient did receive Keppra and will continue with IV Keppra until seen by Neurology. Patient is also have a lumbar puncture performed tomorrow by Interventional Radiology and all tests have been ordered for this lumbar puncture. Patient has been covered with multiple antibiotics as well as antivirals for possible aseptic meningitis as well as bacterial meningitis. Patient has not been fever all wall in the hospital at this point time. Patient does have leukocytosis, but he has been on dexamethasone. White count improved today, 19 down to 17 today. Will have neuro checks every 4 hours. (2) Acute pancreatitis: Code(s): K85.90 - Acute pancreatitis without necrosis or infection, unspecified Status: Acute Assessment and Plan: Patient's lipase is elevated but he denies any signs and symptoms of pancreatitis. CT scan does show possible pancreatitis. Lipase increased today, will make patient NPO, IV fluids and monitor Subjective Date/time seen: 01/15/22 09:29 Interval history: Saw patient before he went to LP this morning. Patient resting comfortably in bed no overnight events noted. No fevers or chills. No complaints. Review of Systems Review of Systems: Twelve point review of systems was reviewed and is negative except as noted in the HPI Exam Narrative: Constitutional: Patient is well-nourished in no acute distress. Patient is alert and oriented x3 HEENT: Moist mucous membranes. No scleral icterus. No lymphadenopathy. Neck: No carotid bruits noted no JVD noted Lungs: Lung sounds are clear to auscultation bilaterally. No accessory muscle use. No rhonchi, rales, or wheezes noted. Cardiovascular: Apical pulse is regular rate and rhythm. S1-S2 noted, no S3 or S4 noted. No gallops, murmurs, or rubs noted. Abdomen: Soft, round, and nontender. No palpable masses. Extremities: No edema. Nontender. Skin: No rashes or lesions. Warm and dry. Skin is intact. Neurological: No focal neurological deficits. Cranial nerves II-XII grossly intact. Psychiatric: Cooperative, appropriate mood, and affect Objective Data Vital Signs Vital Signs: Vital Signs - 24 hr 01/14/22 12:30 01/14/22 12:44 01/14/22 12:46 Temperature 98.1 F Pulse Rate 110 H 108 H 106 H Respiratory Rate 16 19 16 Blood Pressure 148/66 H 128/70 124/70 Pulse Oximetry 98 95 94 Oxygen Delivery Room Air 01/14/22 13:01 01/14/22 13:16 01/14/22 13:31 Temperature Pulse Rate 100 106 H 108 H Respiratory Rate 19 13 16 Blood Pressure 133/72 134/75 128/65 Pulse Oximetry Oxygen Delivery 01/14/22 17:08 01/14/22 17:15 01/14/22 17:30 Temperature Pulse Rate 106 H 101 H 106 H Respiratory Rate 22 H 22 H 24 H Blood Pressure Pulse Oximetry 97 96 95 Oxygen Delivery 01/14/22 18:08 01/14/22 16:25 01/14/22 20:00 Temperature 98.6 F 97.4 F L Pulse Rate 101 H 96 Respiratory Rate 18 20 Blood Pressure 121/56 L 133/65 Pulse Oximetry 97 96 Oxygen Delivery Room Air 01/14/22 20:00 01/14/22 20:00 01/14/22 23:26 Temperature 97.5 F L Pulse Rate 100 94 Respiratory Rate 18 Blood Pressure 129/73 Pulse Oximetry 100 Oxygen Delivery Room Air 01/14/22 22:00 01/15/22 00:00 01/15/22 00:00 Temperature Pulse Rate 103 H 88 Respiratory Rate Blood Pressure Pulse Oximetry Oxygen Delivery Room Air 01/15/22 02:00 01/15/22 04:00 01/15/22 04:00 Temperature Pulse Rate 98 104 H Respiratory Rate Blood Pressure Pulse Oximetry Oxygen Delivery Room Air 01/15/22 04:00 01/15/22 06:00 01/15/22 08:00 Temperature 98.3 F 98.2 F Pulse Rate 118 H 117 H 104 H Respiratory Rate 20 1
[2022-01-15] MEDS: levETIRAcetam 500MG/NACL 100ML 500 MG/100 ML BAG 400 MG IVPB ×2 (10:11→21:37)
[2022-01-15] MEDS: PANTOPRAZOLE SODIUM IV 40 MG VIAL IV PUSH (10:26)
[2022-01-15] MEDS: cefTRIAXone 2 GM in SODIUM CHLORIDE 0.9% IV 100 ML 200 ML IVPB ×2 (10:27→22:04)
[2022-01-15 10:28] LABS: Glucose CSF 71 mg/dL (40-70); Total Protein CSF 35 mg/dL (12-60)
--- NOTE | 2022-01-15 10:30 | PC.NURSE ---
Patient previously instructed by this RN and Harrison, telecommunications officer, to remain flat on back. Patient has sat up and rolled to his side multiple times. Patient reinstructed that he needs to remain on his back until noon due to the lumbar puncture.
[2022-01-15] MEDS: MAG HYDROX/AL HYDROX/SIMETH 30 ML UDC PO ×2 (10:37→22:12)
--- NOTE | 2022-01-15 12:01 | WPDNEUROLOGY ---
Neurology EEG Report General Information Date of Study: 01/15/22 TEST EEG DIAGNOSIS seizures CONDITION OF RECORDING awake drowsy and sleep EEG NUMBER [id number] CLINICAL HISTORY patient reports was brought in to hospital following 2 seizures couple of days ago. No previous history of seizures EEG DESCRIPTION basic resting occipital frequency consists of low to medium voltage 8 to 9 hertz per 2nd alpha admixed with low-voltage 15 to 18 hertz per 2nd beta. During drowsiness low-voltage beta activity seen diffusely admixed with waxing and waning posterior alpha rhythm. Bilateral symmetrical sleep activity seen during sleep hyperventilation not done. Photic stimulation not done. Non paroxysmal. Nonfocal. Nonlateralizing. IMPRESSION Only minimally abnormal record due to the presence of excessive amount of theta slow activity during wakefulness otherwise there is no evidence of any paroxysmal discharges clinical correlation recommended signed a triage nurse's thank you
[2022-01-15] MEDS: SERTRALINE HCL 25 MG TABLET PO (12:22)
[2022-01-15] MEDS: buPROPion HCL XL (24 HR) 150 MG TABCR 300 MG PO (12:22)
[2022-01-15 13:55] LABS: Appearance CSF Clear (Clear); CSF source CSF
[2022-01-15 13:56] LABS: Color CSF Colorless (Colorless); Nucleated Cell CSF 4 /uL (0-5)
[2022-01-15 13:57] LABS: Red Blood Cell CSF 0 (0-2)
[2022-01-15 14:38] LABS: Vancomycin Trough < 5.0 ug/mL (10.0-20.0)
[2022-01-15 14:38] LABS: Lymphocytes CSF 85 % (40-80); Monocytes CSF 15 % (15-45)
[2022-01-15] MEDS: QUEtiapine FUMARATE 25 MG TABLET PO (21:37)
[2022-01-16] VITALS (8 sets, daily range): BP systolic 96–126; BP diastolic 43–70; PULSE 75–102; RESP 12–20; TEMP 36.3–37.1; O2SAT 97–100
[2022-01-16] MEDS: SODIUM CHLORIDE 0.9% IV 1,000 ML 150 ML IV CONT (03:45)
[2022-01-16] MEDS: MAG HYDROX/AL HYDROX/SIMETH 30 ML UDC PO (03:55)
[2022-01-16 05:23] LABS: Estimated CRCL calculation 115 ml/min; Estimated Glomerular Filt Rate > 60
[2022-01-16] MEDS: PANTOPRAZOLE SODIUM IV 40 MG VIAL IV PUSH (07:29)
[2022-01-16] MEDS: ACYCLOVIR SODIUM IVPB 800 MG in DEXTROSE 5% IN WATER 250 ML 266 MG IVPB (08:13)
[2022-01-16 08:28] LABS: Basophils Percent Auto 0.1 % (0.2-1.2); Hematocrit 40.5 % (42.0-52.0); Immature Granulocyte Absolute 0.22 K/mm3 (0.00-0.031); Immature Granulocyte Percent A 1.3 % (0-0.5); Lymphocytes Absolute Auto 0.73 K/mm3 (0.9-3.2); Lymphocytes Percent Auto 4.4 % (18.3-44.2); Mean Corpuscular HGB Conc 32.1 g/dl (32-36); Mean Corpuscular Hemoglobin 27.5 pg (26-34); Mean Corpuscular Volume 85.6 fl (80-100); Mean Platelet Volume 9.1 fl (7.4-10.4); Monocytes Absolute Auto 0.9 K/mm3 (0.1-0.6); Monocytes Percent Auto 5.7 % (2.6-8.5); Neutrophils Absolute Auto 14.5 K/mm3 (1.3-6.7); Neutrophils Percent Auto 88.5 % (45.5-73.1); Nucleated Red Blood Cells Perc 0.1 % (0.0-0.2); Platelet Count Result 291 k/mm3 (150-375); Red Blood Count 4.73 M/mm3 (4.6-6.20); Red Cell Distribution Width 15.6 % (11.5-14.5); White Blood Count 16.4 K/mm3 (4.5-10.0)
[2022-01-16 08:44] LABS: Hypochromasia 1+ (NORMAL); Platelet Estimate Adequate (Adequate)
[2022-01-16 08:46] LABS: Poikilocytosis 1+ (NORMAL)
[2022-01-16 08:50] LABS: Alanine Aminotransferase 36 U/L (6-50); Alkaline Phosphatase 43 U/L (38-126); Anion Gap 7 mmol/L (8-16); Aspartate Amino Transferase 52 U/L (17-59); Bilirubin,Total 0.4 mg/dL (0.2-1.3); Blood Urea Nitrogen 13 mg/dL (9-20); Calcium 8.3 mg/dL (8.4-10.2); Carbon Dioxide 24 mmol/L (22-30); Chloride 104 mmol/L (98-107); Estimated CRCL calculation 104 ml/min; Estimated Glomerular Filt Rate > 60; Glucose 158 mg/dL (65-110); Potassium 4.3 mmol/L (3.4-5.0); Sodium 135 mmol/L (137-145)
[2022-01-16 08:51] LABS: Lipase 2613 U/L (23-300)
[2022-01-16] MEDS: ENOXAPARIN 40 MG/0.4 ML SYRINGE SUB-Q (09:14)
[2022-01-16] MEDS: buPROPion HCL XL (24 HR) 150 MG TABCR 300 MG PO (09:14)
[2022-01-16] MEDS: cefTRIAXone 2 GM in SODIUM CHLORIDE 0.9% IV 100 ML 200 ML IVPB (09:16)
[2022-01-16] MEDS: SERTRALINE HCL 25 MG TABLET PO (09:20)
--- NOTE | 2022-01-16 09:30 | PM.IMPN ---
Progress Note: A&P Assessment and Plan (1) Seizure disorder: Code(s): G40.909 - Epilepsy, unspecified, not intractable, without status epilepticus Status: Acute Assessment and Plan: Appreciate neurology consultation, LP studies pending, continue Keppra Some concern for underlying infection, continue vancomycin, Rocephin, acyclovir Leukocytosis improved down to 16 today from 19 on admission (2) Acute pancreatitis: Code(s): K85.90 - Acute pancreatitis without necrosis or infection, unspecified Status: Acute Assessment and Plan: Lipase came down significantly today, advance diet as tolerated, remains asymptomatic Subjective Date/time seen: 01/16/22 09:30 Interval history: Patient resting comfortably in bed no overnight events noted. No fevers or chills. No complaints. Review of Systems Review of Systems: Twelve point review of systems was reviewed and is negative except as noted in the HPI Exam Narrative: Constitutional: Patient is well-nourished in no acute distress. Patient is alert and oriented x3 HEENT: Moist mucous membranes. No scleral icterus. No lymphadenopathy. Neck: No carotid bruits noted no JVD noted Lungs: Lung sounds are clear to auscultation bilaterally. No accessory muscle use. No rhonchi, rales, or wheezes noted. Cardiovascular: Apical pulse is regular rate and rhythm. S1-S2 noted, no S3 or S4 noted. No gallops, murmurs, or rubs noted. Abdomen: Soft, round, and nontender. No palpable masses. Extremities: No edema. Nontender. Skin: No rashes or lesions. Warm and dry. Skin is intact. Neurological: No focal neurological deficits. Cranial nerves II-XII grossly intact. Psychiatric: Cooperative, appropriate mood, and affect Objective Data Vital Signs Vital Signs: Vital Signs - 24 hr 01/15/22 09:57 01/15/22 10:00 01/15/22 12:23 Temperature 98.2 F Pulse Rate 94 83 104 H Respiratory Rate 20 14 Blood Pressure 124/70 109/50 L Pulse Oximetry 96 98 Oxygen Delivery 01/15/22 12:00 01/15/22 12:00 01/15/22 14:00 Temperature Pulse Rate 111 H 92 Respiratory Rate Blood Pressure Pulse Oximetry Oxygen Delivery Room Air 01/15/22 16:00 01/15/22 16:00 01/15/22 16:00 Temperature 97.8 F Pulse Rate 108 H 116 H Respiratory Rate 16 Blood Pressure 121/58 L Pulse Oximetry 97 Oxygen Delivery Room Air 01/15/22 18:00 01/15/22 20:00 01/16/22 00:00 Temperature 97.8 F 97.4 F L Pulse Rate 80 102 H 101 H Respiratory Rate 16 16 Blood Pressure 129/51 L 113/50 L Pulse Oximetry 97 100 Oxygen Delivery 01/15/22 20:00 01/16/22 00:00 01/15/22 20:00 Temperature Pulse Rate 99 Respiratory Rate Blood Pressure Pulse Oximetry Oxygen Delivery Room Air Room Air 01/15/22 22:00 01/16/22 00:00 01/16/22 02:00 Temperature Pulse Rate 94 98 90 Respiratory Rate Blood Pressure Pulse Oximetry Oxygen Delivery 01/16/22 04:00 01/16/22 04:00 01/16/22 04:00 Temperature 97.6 F Pulse Rate 83 102 H Respiratory Rate 12 Blood Pressure 96/43 L Pulse Oximetry 99 Oxygen Delivery Room Air 01/16/22 06:00 01/16/22 08:22 01/16/22 08:00 Temperature 98.8 F Pulse Rate 75 97 92 Respiratory Rate 20 Blood Pressure 117/47 L Pulse Oximetry 97 Oxygen Delivery Intake/Output Intake/Output: Intake & Output 01/13/22 01/14/22 01/15/22 01/16/22 23:59 23:59 23:59 23:59 Intake Total 2432 4198 1866 Output Total 1600 1700 1200 Balance 832 0810 206 Meds/Results Medications: Active Medications Generic Name Dose Route Start Last Admin Trade Name Freq PRN Reason Stop Dose Admin Al Hydrox/Mg Hydrox/Simethicone 30 ml 01/14/22 15:55 01/16/22 03:55 Mag Hydrox/Al Hydrox/Simeth 30 Ml Udc PO 30 ml Q6H PRN Administration Indigestion Benzocaine 1 lozenge 01/14/22 17:38 01/15/22 10:11 Benzocaine/Menthol (*Bkc) 18 Ea Lozenge PO 01/16/22 17:37 1 chuckie
[2022-01-16] MEDS: levETIRAcetam 500MG/NACL 100ML 500 MG/100 ML BAG 400 MG IVPB (10:02)
--- NOTE | 2022-01-16 12:19 | WPDNEUROPN ---
Progress Note: A&P Assessment and Plan (1) Seizure disorder: Code(s): G40.909 - Epilepsy, unspecified, not intractable, without status epilepticus Status: Acute (2) Acute pancreatitis: Code(s): K85.90 - Acute pancreatitis without necrosis or infection, unspecified Status: Acute Plan continue the treatment as such patient was advised to be compliant with the Keppra when he gets discharged and antibiotic and antiviral will be stopped after the final studies are confirmed Subjective Date/time seen: 01/16/22 12:19 Review of Systems Review of Systems: follow-up, EEG was slightly abnormal because of the presence of minimal amount of theta activity but there was no evidence of any paroxysmal activity or paroxysmal discharge, MRI is still pending but during his recent hospitalization the 1st MRI on January 13, 2022 was normal so as the cervical spine CT scan he remains afebrile routine CBC shows leukocytosis and his lipase is 2613, spinal fluid Gram stain was negative, culture is also negative on spinal fluid as well as the blood All systems reviewed & are unremarkable except as noted in HPI and below Objective Data Vital Signs Vital Signs: Vital Signs - 24 hr 01/15/22 12:23 01/15/22 14:00 01/15/22 16:00 Temperature 36.8 C 36.6 C Pulse Rate 104 H 92 108 H Respiratory Rate 14 16 Blood Pressure 109/50 L 121/58 L Pulse Oximetry 98 97 Oxygen Delivery 01/15/22 16:00 01/15/22 16:00 01/15/22 18:00 Temperature Pulse Rate 116 H 80 Respiratory Rate Blood Pressure Pulse Oximetry Oxygen Delivery Room Air 01/15/22 20:00 01/16/22 00:00 01/15/22 20:00 Temperature 36.6 C 36.3 C L Pulse Rate 102 H 101 H Respiratory Rate 16 16 Blood Pressure 129/51 L 113/50 L Pulse Oximetry 97 100 Oxygen Delivery Room Air 01/16/22 00:00 01/15/22 20:00 01/15/22 22:00 Temperature Pulse Rate 99 94 Respiratory Rate Blood Pressure Pulse Oximetry Oxygen Delivery Room Air 01/16/22 00:00 01/16/22 02:00 01/16/22 04:00 Temperature Pulse Rate 98 90 83 Respiratory Rate Blood Pressure Pulse Oximetry Oxygen Delivery 01/16/22 04:00 01/16/22 04:00 01/16/22 06:00 Temperature 36.4 C Pulse Rate 102 H 75 Respiratory Rate 12 Blood Pressure 96/43 L Pulse Oximetry 99 Oxygen Delivery Room Air 01/16/22 08:22 01/16/22 08:00 01/16/22 10:00 Temperature 37.1 C Pulse Rate 97 92 95 Respiratory Rate 20 Blood Pressure 117/47 L Pulse Oximetry 97 Oxygen Delivery Intake/Output Intake/Output: Intake & Output 01/13/22 01/14/22 01/15/22 01/16/22 23:59 23:59 23:59 23:59 Intake Total 2432 4198 1966 Output Total 1600 1700 1200 Balance 832 5596 766 Meds/Results Medications: Active Medications Generic Name Dose Route Start Last Admin Trade Name Freq PRN Reason Stop Dose Admin Al Hydrox/Mg Hydrox/Simethicone 30 ml 01/14/22 15:55 01/16/22 03:55 Mag Hydrox/Al Hydrox/Simeth 30 Ml Udc PO 30 ml Q6H PRN Administration Indigestion Benzocaine 1 lozenge 01/14/22 17:38 01/15/22 10:11 Benzocaine/Menthol (*Bkc) 18 Ea Lozenge PO 01/16/22 17:37 1 lozenge PRN PRN Administration Sore Throat Bupropion HCl 300 mg 01/15/22 09:00 01/16/22 09:14 Bupropion Hcl Xl (24 Hr) 150 Mg Tabcr PO 300 mg DAILY ANA Administration Dexamethasone Sodium Phosphate 13 mg 01/14/22 18:00 01/16/22 06:45 Dexamethasone Sod Phos Inj 10 Mg/Ml 1 Ml Vial IV PUSH 13 mg Q6HR ANA Administration Enoxaparin Sodium 40 mg 01/15/22 09:00 01/16/22 09:14 Enoxaparin 40 Mg/0.4 Ml Syringe SUB-Q 40 mg DAILY ANA Administration Sodium Chloride 1,000 mls @ 150 mls/hr 01/14/22 15:20 01/16/22 09:05 Normal Saline Iv IV CONT Not Given .Q6H40M ANA Levetiracetam 500 mg in 100 mls @ 400 mls/hr 01/14/22 21:00 01/16/22 10:02 Keppra Iv IVPB 400 mls/hr Q12HR ANA Administration Ceftriaxone Sodium 2 gm/ 1
--- NOTE | 2022-01-16 13:00 | PC.NURSE ---
Pt signing out AMA-Dr. Johnson notified. pt acknowledged risks of leaving- Paper signed- IV d/autumn- belongings with pt
[2022-01-17 13:58] LABS: Cryptococcus Antigen Not Detected (Not Detected); Cryptococcus Specimen Source CSF; Epstein Barr Virus DNA PCR Not Detected (Not Detected); Source Epstein Barr Virus CSF
[2022-01-17 19:03] LABS: Herpes Simplex Type 1 DNA PCR Not Detected (Not Detected); Herpes Simplex Type 2 DNA PCR Not Detected (Not Detected)
[2022-01-18 13:08] LABS: VDRL Quantitative CSF Nonreactive (Nonreactive)
--- NOTE | 2022-01-30 07:39 | PM.DS ---
DS: Admitting Diagnosis Discharge Date 01/16/22 Admitting Diagnosis Epilepsy with possible acute pancreatitis DS: Discharge Diagnosis Discharge Diagnosis (1) Seizure disorder: Code(s): G40.909 - Epilepsy, unspecified, not intractable, without status epilepticus Status: Acute Assessment and Plan: Neurology consulted, EEG planned, continue IV Keppra, LP ordered Patient placed on Decadron, broad-spectrum antibiotics as well as antivirals due to possible aseptic meningitis versus bacterial meningitis (2) Acute pancreatitis: Code(s): K85.90 - Acute pancreatitis without necrosis or infection, unspecified Status: Acute Assessment and Plan: Resolved, diet advanced, elevated lipase could be secondary to dehydration as opposed to overt pancreatitis, however abdomen of CT and pelvis did show mild pancreatic enlargement with possible surrounding inflammation as well as a small 1 with peritoneal fluid suggestive of pancreatitis (3) Substance abuse: Code(s): F19.10 - Other psychoactive substance abuse, uncomplicated Status: Acute Assessment and Plan: Patient admits to taking testosterone as well as Adderall that is not prescribed to him DS: Summary Hospital Course Hospital Course: 21-year-old male with past medical history substance abuse including Adderall abuse as well as testosterone injections was admitted January 12 for possible seizure activity and then left AMA. Per documentation from that time, patient had witnessed episode of shaking and turning purple per fiancee that lasted approximately 10 minutes 3 different times. During the episodes, patient lost control of his bowels. At that time, he was admitted to the hospital with meningitis prophylaxis with Decadron, vancomycin, Rocephin acyclovir. LP was attempted but was unsuccessful. Patient then left AMA on January 13. In the ER on January 14, patient states he does not remember leaving AMA and returned to the ER for further care. In the ER, patient was started on IV Keppra and Neurology was consulted. EEG was scheduled during his last admission will be performed during this admission. During this visit, Neurology was reconsulted, Keppra was restarted, EEG, lumbar puncture and MRI were all ordered. CT of the abdomen and pelvis was also done in the ER and showed possible mild pancreatitis and patient was made NPO with IV fluid resuscitation initiated. Lipase was elevated to 2800, increased to 5700 on January 15 and then back down to 2600 on January 16. Patient was essentially asymptomatic throughout denying abdominal pain, nausea, vomiting or diarrhea. MRI with the brain was completed and was completely normal. Neurology consult note stated that EEG was unable to be completed prior to patient leaving AMA. However, per the recording is done on the initial EEG, Neurology saw the excessive beta activity but no evidence of paroxysmal discharge, making it minimally abnormal. LP was successfully performed on January 15 yielding 12 mL of clear colorless fluid. CSF fluid results did yield a slight increase in lymphocytes at 85%. Glucose was noted to be essentially normal at 71. CSF was negative for HSV, West Nile virus, cryptococcus, VDRL, EBV, Lyme disease. CSF culture and Gram stain were both negative. All blood cultures came back negative. Patient left AMA January 16 around 1:00 p.m.. Time Spent with Patient Time attestation: Total time spent providing and/or coordinating discharge services: Exam Narrative: General: Patient resting comfortably in bed, no acute distress HEENT: Atraumatic, normocephalic, mucous membranes moist CV: Regular rate and rhythm, S1, S2, no murmurs rubs or gallops noted Lungs: Clear to auscultation bilaterally, no rales or crackles noted, no wheezes, good air entry Abdomen: Soft, nontender, nondistended Extremities: Normal to inspection, no edema noted Skin: No rashes noted, no lesions or wounds see
== END 2022-01-16 13:24 | disposition left against medical advice (07) ==
LOC: ANHED 16:31 → ANHIMU 18:19
PROVIDERS: Nurse Practitioner Adult Health; Admitting Provider Internal Medicine; Emergency Provider Emergency Medicine; Visit Provider Student in an Organized Health Care Education/Training Program
DX: G40.909 Epilepsy, unspecified, not intractable, without status epilepticus (principal); K85.90 Acute pancreatitis without necrosis or infection, unspecified; F90.9 Attention-deficit hyperactivity disorder, unspecified type; J45.20 Mild intermittent asthma, uncomplicated; F32.A Depression, unspecified
CPT/HCPCS: 36415; 62328; 71045; 74176; 80053; 80202; 80307; 82550; 82565; 82945; 83605; 83690; 84157; 84484; 85025; 85610; 85730; 86403; 86592; 86617; 87040; 87070; 87102; 87205; 87206; 87529; 87798; 88108; 89051; 95816; 96361; 96365; 96366; 96367; 96368; 96375; 96376; 99285; A9270; C9113; G0378; J0133; J0696; J1100; J1650; J1953; J2060; J3370; J7030; J7060

== ENCOUNTER 2022-01-24 19:27 | Emergency (ER) | payer OTHER, SELFPAY ==
[2022-01-24 19:34] VITALS: BP 142/75; PULSE 80; RESP 18; TEMP 36.6; O2SAT 100
--- NOTE | 2022-01-24 19:34 | ED.SKABFB ---
HPI - Skin/Abscess/Foreign Bdy General Chief complaint: Skin/Abscess/Foreign Body Stated complaint: Rash Time Seen by Provider: 01/24/22 19:35 History of Present Illness HPI narrative: Rex De La Cruz is a 21 yo male with depression, ADD, new onset seizure disorder, who is here with a rash on bilateral arms that started 10 days ago, was seen in [facility] for rash (with some on chest) and given clindamycin lotion bid; rash is still on arms, none on face, torso, legs, or mouth Patient denies changing meds using any drugs of abuse, going back to anabolic steroids, drinking alcohol, states he did not use Adderall today, coherent and able to answer questions Patient states he is sleep deprived because of upcoming carpal tunnels surgery, thathands causing him a lot of pain He denies using Keppra or other medications or new medications, or follow up for new onset seizure disorder Related Data Home Medications Medication Instructions Recorded Confirmed dextroamphetamine-amphetamine 10 1 tablet PO DAILY 01/12/22 01/24/22 mg tablet dextroamphetamine-amphetamine ER 1 cap PO DAILY 01/12/22 01/24/22 20 mg 24hr capsule,extend release sertraline 50 mg tablet 50 tablet PO DAILY 01/13/22 01/24/22 Allergies Allergy/AdvReac Type Severity Reaction Status Date / Time No Known Allergies Allergy Verified 01/24/22 19:59 Review of Systems Review of Systems: CONSTITUTIONAL: Denies fever, chills, sweats. EYES: Denies visual changes, redness, discharge. ENT: Denies rhinorrhea, congestion, sore throat, otalgia. CARDIOVASCULAR: Denies chest pain, palpitations, edema. RESPIRATORY: Denies dyspnea, wheezing, cough GASTROINTESTINAL: Denies abdominal pain, nausea, vomiting, diarrhea. GENITOURINARY: Denies dysuria, hematuria, abnormal discharge SKIN: Red rash on bilateral arms none on chest torso legs NEUROLOGIC: Denies numbness, or focal weakness. PSYCHIATRIC: Denies anxiety or depression. [facility] Past Medical History Medical History Acute pancreatitis ADHD (attention deficit hyperactivity disorder) Depression Mild intermittent asthma without complication Seizure disorder Surgical History Surgical History No pertinent past surgical history Family History Family History Mother Depression Other No history of seizure disorder Social History Social History Social History: The patient is currently going to the local [employer] he started this summer semester. Prior to that he had joined [employer] and went to [employer] but was released intermediate through [employer] when he developed bunch splints that were intractable. 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 He uses anabolic steroids since 2019. He also buys medications from [employer] that he thinks are steroids. Smoking status: Never smoker Alcohol intake: never Substance use: current Substance use type: marijuana and amphetamines Other substance usage details: Testerone, Steroids, Trestolone Spiritual care concerns: No Comments At time of signature, I agree with nursing past medical, surgical, social and family history. There is no relevant family history pertinent to the presenting complaint. Exam Narrative: GENERAL: This is a well-nourished, well-developed patient, in mild distress. Very shaky while interviewed, sweating HEAD: normocephalic, atraumatic. EYES: PERRL. Pupils dilated- denies drug use. Sclera clear/white. Vision is grossly intact. EARS: External ears normal. Hearing grossly intact. NOSE: External nose normal without nasal discharge, nares without redness, no rhinorrhea. THROAT: Mucous membranes dry NECK: Neck supple, non-tender CARDIOVASCULAR: Regular rate and rhythm without murmurs, gal
[2022-01-24] MEDS: ONDANSETRON HCL ODT 4 MG TABLET SUBLINGUAL (19:51)
[2022-01-24] MEDS: predniSONE 20 MG TABLET 60 MG PO (19:51)
== END 2022-01-24 20:10 | disposition home or self-care (01) ==
PROVIDERS: Emergency Provider Nurse Practitioner
DX: L25.9 Unspecified contact dermatitis, unspecified cause (principal); F90.9 Attention-deficit hyperactivity disorder, unspecified type; F32.A Depression, unspecified
CPT/HCPCS: 99213; A9270; G0463; J7512